=== PATIENT | male | born 1945 | race Caucasian/White ===

== ENCOUNTER 2020-10-02 14:45 | Emergency (ER) | payer SELFPAY ==
[2020-10-02] MEDS ORDERED: MUPIROCIN2 % EX (15:28)
[2020-10-02 15:46] VITALS: BP 132/75
== END 2020-10-02 15:50 | disposition home or self-care (01) | DRG 607 ==
LOC: ED 14:45
PROC: 0HQ3XZZ Repair Left Ear Skin, External Approach (ICD-10-PCS; principal; 2020-10-02)
DX: L98.9 Disorder of the skin and subcutaneous tissue, unspecified (principal); F17.210 Nicotine dependence, cigarettes, uncomplicated